=== PATIENT | female | born 1965 | race Caucasian/White ===

== ENCOUNTER 2019-03-19 17:00 | Observation (INO) ==
[2019-03-19] MEDS ORDERED: MORPHINE IV ONE ×2 (17:29→20:41)
[2019-03-19] MEDS ORDERED: ZOFRAN IV ONE (17:29)
--- NOTE | 2019-03-19 17:42 | PROVIDER DOCUMENTATION ---
HPI-Chest Pain - General Chief Complaint: Rib Pain Stated Complaint: RIB PAIN Time Seen by Provider: 03/19/19 17:20 Allergies/Adverse Reactions: Patient Allergies Allergy/AdvReac Type Severity Reaction Status Date / Time amoxicillin Allergy NAUSEA Verified 03/19/19 17:22 Home Medications: Home Medication List Medication Instructions Recorded Confirmed Last Taken Type RX: Amitriptyline [Elavil] 25 mg PO HS 01/12/18 03/19/19 03/19/19 History RX: Metformin [Glucophage] 1,000 mg PO BID CC 01/12/18 03/19/19 03/19/19 History RX: Aspirin EC 1 tab PO DAILY 03/19/19 03/19/19 03/19/19 History RX: Glyburide 10 mg PO BID 03/19/19 03/19/19 03/19/19 History RX: Omeprazole [Prilosec] 1 cap PO DAILY 03/19/19 03/19/19 03/19/19 History Cholecalciferol (Vit D3) [Vitamin 1,000 unit PO DAILY #1 tab 03/20/19 Unknown Rx D] [place]-3 Fatty Acids/Fish Oil [Fish 1 ea PO DAILY #1 cap 03/20/19 Unknown Rx Oil 1,000 mg Capsule] RX: Hydrocodone/APAP 7.5 mg/325 mg 1 ea PO Q4H PRN PRN #15 tab 03/20/19 Unknown Rx [Brice-7.5] RX: LISINOpril [Prinivil] 40 mg PO BID tab 03/20/19 Unknown Rx RX: Meloxicam 15 mg PO DIRECTED #30 tab 03/20/19 Unknown Rx RX: PRAVAstatin [Pravachol] 20 mg PO HS tab 03/20/19 Unknown Rx - History of Present Illness-CP Nature of Presenting Problem: 53year old Female with background h/o HTN, DM, HLD, Smoker c/o left sided chest pain of 3 days duration radiating to the left scapular area. Started after her popped her back. Pain is similar to that of left rib fracture 2 years ago. describes as aching continuos 8/10 pain worse with coughing, breathing or lying down. unaffected with 1 tab of lortab taken so far Denies dyspnea, diaphoresis, lightheadedness and weakness. Also has nausea without vomiting. No syncope. Has no orthopnea, PND, calf pain or swelling Location: reports: other (left sided) Chest Pain Radiation: reports: back (left) Quality of Pain: reports: aching Onset/Duration: 3 days ago Timing: still present, getting worse Modifying Factors: improves with: coughing (makes it worse), lying down, other (breathing makes the pain worse) Associated Symptoms: reports: denies symptoms Nitro Today/Relief: no nitro taken today Aspirin Treatment Today: no aspirin today Similar Symptoms Previously?: Yes (with left rib fracture) Recently Seen Here or By Another Healthcare Provider: Yes Review of Systems - Adult - REVIEW OF SYSTEMS - ADULT Constitutional: reports: no symptoms reported Eyes: reports: no symptoms reported Ears, Nose, Mouth & Throat: reports: no symptoms reported Cardiovascular: reports: chest pain Respiratory: reports: cough Gastrointestinal: reports: no symptoms reported Genitourinary: reports: no symptoms reported Musculoskeletal: reports: see HPI Integumentary: reports: no symptoms reported Neurological: reports: no symptoms reported Psychiatric: reports: no symptoms reported Endocrine: reports: no symptoms reported Hematologic/Lymphatic: reports: no symptoms reported Allergic/Immunologic: reports: no symptoms reported Past History - Adult - PAST MEDICAL HISTORY-ADULT Review of Records: reports: Nursing Assessment Review, Medications Reviewed, Social history reviewed & non-contributory. Major Childhood Illnesses: reports: denies history Cardiovascular: reports: HTN, hyperlipidemia Respiratory: reports: bronchitis Gastrointestinal: reports: denies history Obstetrical/Gynecological: reports: denies history Genitourinary: reports: denies history Musculoskeletal: reports: denies history Neurological: reports: denies history Psychiatric: reports: denies history Endocrine/Immune: reports: Diabetes Other Conditions: reports: denies history - PRIOR SURGERIES/PROCEDURES Surgical/Procedure History: reports: reviewed, not pertinent, appendectomy, hysterectomy - IMMUNIZATION STATUS Childhood Immunizations: See Nurse Assessment Flu Vaccine: See Nurse Assessment - FAMILY HISTORY Family History: reviewed, not pertinent - SOCIAL HISTORY Smoking: cigarettes Substance Use: none/never Alcohol Use Frequency: never Living Situation: family Physical Exam-General - PHYSICAL EXAM-ADULT Initial Vital Signs Reviewed: Yes - CONSTITUTIONAL General Appearance: appears well, alert - EYES Eyes: PERRL/EOMI - HEAD, EARS, NOSE, MOUTH & THROAT HENMT: normocephalic/atraumatic - NECK Neck: non-tender, full range of motion - RESPIRATORY Respiratory: lungs clear, normal breath sounds - CARDIOVASCULAR Cardiovascular: regular rate, rhythm, no edema, no JVD - GASTROINTESTINAL (ABDOMEN) Abdominal Exam: non tender, soft - MUSCULOSKELETAL Back Exam: normal inspection Extremity: normal range of motion - SKIN Integumentary: normal color - PSYCHIATRIC Psych/Mental Status: oriented x 3 - HEART Score HEART Score: History: Moderately Suspicious HEART Score: ECG: Non-Specific Repolarization Disturbance/LBBB/PM HEART Score: Age: 45-65 Years HEART Score: Risk Factors for Atherosclerotic Disease: > or = 3 Risk Factors or History of Atherosclerotic Disease HEART Score: Troponin: 1-3x Normal Limit Total HEART Score:: 6 Progress - PLAN OF CARE/RESULTS Result Diagrams: 03/19/19 18:19 03/19/19 18:19 - REASSESSMENT Reassessment #1 Time Reassessed: 18:58 (Patient seen at this time. Reports no pain or any other symptoms. Awaiting lab results.) Status: improving Reassessment #2 Time Reassessed: 20:01 (Patient evaluated, reports increasing left chest pain radiating to the back. has chest wall tenderness. Will give NTG) Status: worsening Reassessment #3 Time Reassessed: 20:20 (Discussed with Dr Trent rawls admission, he wants a 2nd troponin and if neg , pt can be treated for pain control and have pcp follow up) Reassessment #4 Time Reassessed: 20:37 (Still reporting chest pain inspite of NTG, will give her morphine 4mg) - XRAY 1 XRAY Study: Chest ( EXAM: CHEST-2 VIEWS INDICATION: chest/rib pain TECHNIQUE: 2 views COMPARISON: 01/12/2018 FINDINGS: There is mild atelectasis at the right lower lung zone. The lungs are grossly clear, otherwise. There is no discrete pleural fluid collection or pneumothorax. The cardiomediastinal silhouette and central vasculature are grossly unremarkable. IMPRESSION: Mild atelectasis at the right lung base. No definite acute chest pathology, otherwise. Electronically signed by Moises Chavis 03/19/2019 6:33 PM) - CONSULTS/PCP/HOSPITALIST Notification #1 *Consult/PCP/Hospitalist*: Dr Newman Time Discussed: 20:45 Consult Disposition: Admit (by dr Newman) Departure - Departure Date of Disposition Decision: 03/19/19 Time of Disposition Decision: 20:45 DIAGNOSIS: Rib pain on left side Chest pain Qualifiers: Chest pain type: unspecified Qualified Code(s): R07.9 - Chest pain, unspecified Disposition: ADMITTED INPATIENT 09 Certified Medical Emergency: Emergent Condition: Fair - Critical Care Note This patient required my direct & personal management of CC.: No Attestation - Physician/ GERRI Attestation Patient care was provided by Advanced Practice Provider:: No The physician spent face to face time with patient:: Yes Advanced Practice Provider documentation review:: Supervising physician onsite and consulted in the evaluation and care of this patient. The physician did have a face to face encounter with the patient.
[2019-03-19 18:29] LABS: BASO# 0.01 X1000 (0.0-0.2); BASO% 0.1 % (0.0-0.8); EOS# 0.36 X1000 (0.0-0.7); EOS% 3.7 % (0.0-10.0); HEMATOCRIT 38.2 % (37.0-47.0); HEMOGLOBIN 12.6 g/dL (12.0-16.0); IMM GRAN# 0.02 X1000 (0.0-0.04); IMM GRAN% 0.2 % (0.0-0.5); LYMPH# 3.58 X1000 (1.2-3.4); LYMPH% 36.5 % (20.5-51.1); MCH 28.7 PG (27-31); MONO# 0.48 X1000 (0.11-0.59); MONO% 4.9 % (1.7-9.3); MPV 10.2 FL (7.4-10.4); NEUT# 5.37 X1000 (1.4-6.5); NEUT% 54.6 % (42.2-75.2); PLT 241 X1000 (130-400); RBC 4.39 XMIL (4.2-5.4); RDW 12.7 % (11.5-14.5); WBC 9.82 X1000 (4.8-10.8)
--- NOTE | 2019-03-19 18:36 | Diag Imaging Result Doc PS360 ---
EXAM: CHEST-2 VIEWS INDICATION: chest/rib pain TECHNIQUE: 2 views COMPARISON: 01/12/2018 FINDINGS: There is mild atelectasis at the right lower lung zone. The lungs are grossly clear, otherwise. There is no discrete pleural fluid collection or pneumothorax. The cardiomediastinal silhouette and central vasculature are grossly unremarkable. IMPRESSION: Mild atelectasis at the right lung base. No definite acute chest pathology, otherwise. Electronically signed by Moises Chavis 03/19/2019 6:33 PM
[2019-03-19 18:58] LABS: AGAP 10; BUN 17 mg/dL (8-22); CALCIUM 8.7 mg/dL (8.8-10.2); CHLORIDE 96 mmol/L (98-107); CK PROFILE 29 U/L (24-173); COSMO 280; CREATININE 0.7 mg/dL (0.5-0.9); ESTIMATED GFR > 60; GLUCOSE 320 mg/dL (70-104); POTASSIUM 4.5 mmol/L (3.5-5.1); SODIUM 133 mmol/L (136-145); TCO2 27 mmol/L (25-35)
[2019-03-19] MEDS ORDERED: NITROGLYCERIN SL ONE (19:59)
[2019-03-19] MEDS ORDERED: DILAUDID IV ONE (21:04)
--- NOTE | 2019-03-19 21:25 | Diag Imaging Result Doc PS360 ---
EXAM: RIBS ONLY LEFT INDICATION: Left rib pain TECHNIQUE: 2 views COMPARISON: 01/12/2018 FINDINGS: There is suggestion of a mild cortical defect involving the anterior aspect of the fourth rib on the second image. Although questionable, this could represent a nondisplaced fracture. Please correlate clinically for recent trauma. No other discrete fracture, dislocation, or intrinsic osseous lesion is appreciated. The left lung is unremarkable. There is no evidence of pleural fluid collection or pneumothorax. IMPRESSION: Questionable nondisplaced fracture at the anterior fourth rib on the left. Please see above discussion. Electronically signed by Moises Chavis 03/19/2019 9:23 PM
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
--- NOTE | 2019-03-20 02:13 | EKG Report ---
Test Performed on : 03/19/2019 6:09:46 PM Test Reason : RIB PAIN Blood Pressure : / mmHG Vent. Rate : 074 BPM Atrial Rate : 074 BPM P-R Int : 170 ms QRS Dur : 098 ms QT Int : 398 ms P-R-T Axes : 047 014 054 degrees QTc Int : 441 ms Normal sinus rhythm. Low voltage QRS Incomplete right bundle branch block Cannot rule out Anterior infarct , age undetermined Abnormal ECG No previous ECGs available Unconfirmed Result
[2019-03-20 04:31] VITALS: BP 152/71
[2019-03-20] MEDS: NORCO-7.5 PO PRN ×2 (06:08→09:55)
[2019-03-20] MEDS ORDERED: HUMULIN R SUBQ SCH (07:00)
[2019-03-20] MEDS ORDERED: PRINIVIL PO SCH (09:00)
[2019-03-20] MEDS ORDERED: ASPIRIN EC PO SCH (09:00)
[2019-03-20] MEDS ORDERED: PRAVACHOL PO SCH (09:00)
[2019-03-20] MEDS ORDERED: PRILOSEC PO SCH (09:00)
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
--- NOTE | 2019-03-20 20:17 | DISCHARGE SUMMARY ---
ADMISSION DATE: 03/19/2019 DISCHARGE DATE: 03/20/2019 ADMISSION DIAGNOSIS: 1. Left rib pain. 2. Chest pain. DISCHARGE DIAGNOSES: 1. Nondisplaced fracture of the anterior 4th rib on the left. 2. Diabetes, present on arrival. 3. Hypertension, present on arrival. 4. Hyperlipidemia, present on arrival. CONSULTATIONS: Dr. Harper with Cardiology was consulted for further evaluation and management of chest discomfort. PROCEDURES: 1. A chest x-ray was performed on 03/19/2019 which revealed mild atelectasis at the right lung base. No definitive acute chest pathology otherwise . 2. Rib x-rays on the left were performed on 03/19/2019 which revealed questionable nondisplaced fracture at the anterior 4th rib on the left. HISTORY AND PHYSICAL EXAMINATION: See admit note. PHYSICAL EXAMINATION PRIOR TO DISCHARGE: Temperature 98 degrees, heart rate 75, respirations 18, blood pressure is 152/71. General: Well nourished, well developed, no acute distress. Cardiovascular: Regular rate and rhythm. No significant murmurs, rubs, or gallops. Pulmonary: Clear to auscultation bilaterally. Abdomen: Soft, nontender, nondistended. Positive bowel sounds. Extremities: Moves all extremities well. No significant clubbing, cyanosis, or edema. Dermatologic: Evaluation reveals no evidence of rash. Musculoskeletal: Reveals pain to palpation of the anterior left chest/pain with inspiration and with movement of the chest. LABORATORY DATA: Prior to discharge. Troponin less than 0.010. HOSPITAL COURSE: Patient was admitted as per history and physical examination. Hospital course per condition is as follows. 1. Left chest pain/left anterior 4th rib fracture-upon admission, patient was noted to have significant left-sided chest discomfort associated with an injury. Patient presented to the emergency department. Patient was treated with narcotic pain intervention with improvement. Because of patient's risk factors, she was admitted to rule out cardiac source. Cardiac enzymes returned negative. Telemetry revealed no evidence of abnormalities. With the examination and the history being most consistent with a left anterior rib fracture, patient will be treated accordingly. The patient has been instructed to stay off work today. She will attempt to return to work tomorrow. We will treat patient with meloxicam daily with food for 2 weeks then as needed. A limited prescription of [place] has been provided. Patient understand she is not to operate machinery or work after taking the [place]. We will follow patient's clinical course closely. 2. Diabetes-patient's blood sugars appear to be grossly elevated. Per report, she is taking her medications as prescribed with the exception of her insulin. I have asked patient to attempt to resume all her home medications. She is to keep a log of her blood sugars between now and next visit. We will determine if further intervention is warranted. 3. Hypertension-patient's blood pressure has been slightly elevated while hospitalized. Once again, we will resume her home medications and ask patient to keep a log of her blood pressure between now and next visit. We will determine if further intervention is warranted. 4. Hyperlipidemia-patient was maintained on pravastatin therapy while hospitalized. We will plan to check a cholesterol panel upon return to the office within 2 weeks. DISCHARGE CONDITION: Good. DISPOSITION: Discharge to home. MEDICATIONS: 1. Fish oil 1000 mg daily. 2. [place] 7.5/325 (#20) 1 tablet every 4 hours as needed. 3. Pravastatin 20 mg at bedtime. 4. Lisinopril 40 mg twice daily. 5. Vitamin D3 1000 units daily. 6. Meloxicam 15 mg daily with food for 2 weeks then daily as needed. 7. Amitriptyline 25 mg at bedtime. 8. Metformin 1000 mg twice daily with meals. 9. Aspirin 81 mg daily. 10. Omeprazole 40 mg daily. 11. Glyburide 10 mg twice daily. FOLLOWUP: Patient is to follow up with me in approximately 1 to 2 weeks. cc: Ti Lopez MD
[2019-03-20] MEDS ORDERED: ELAVIL PO SCH (21:00)
== END 2019-03-20 12:30 | disposition home or self-care (01) ==
LOC: ED 17:00 → 1N 17:00 → SUATTDRO 17:01
PROVIDERS: ADMIT Internal Medicine; ATTEND Internal Medicine